=== PATIENT | female | born 1945 | race Caucasian/White ===

== ENCOUNTER 2016-12-19 07:43 | Emergency (ER) | payer BC ==
[2016-12-19 08:01] VITALS: BP 134/82
--- NOTE | 2016-12-19 08:02 | UC ---
General HPI - HPI Summary HPI Summary: 71 yo female with no reported past medical history (no pcp) presents with on and off illness for 3-4 weeks. Symptoms initially started with cough and nasal congestion which improved for several days then she developed sinus pain, MART, possible intermittent fever (not documented) for the last 2 weeks. Reports fatigue, continued nasal congestion with purulent drainage, occasional cough and mild SOB. Right ear pain 1 week ago for 1 day then resolved. Denies chills or myalgias. Denies CP or SOB. No N/V/D or abdominal pain. Denies dysuria and increased urinary frequency. Has not missed any work. - History of Current Complaint Chief Complaint: UCRespiratory Stated Complaint: SINUS,EAR PAIN Time Seen by Provider: 12/19/16 08:01 Hx Obtained From: Patient Onset/Duration: Gradual Onset Timing: Intermittent Episodes Lasting: - 3-4 weeks Onset Severity: Moderate Current Severity: Moderate Associated Signs & Symptoms: Positive: Cough, Headache. Negative: Abdominal Pain, Chest Pain, Dizziness, Diarrhea, Dysuria, Decreased Oral Intake, Nausea, SOB, Wheezing - Allergy/Home Medications Allergies/Adverse Reactions: Allergies Allergy/AdvReac Type Severity Reaction Status Date / Time Penicillins Allergy Severe Rash Verified 12/19/16 07:54 PMH/Surg Hx/FS Hx/Imm Hx Previously Healthy: Yes - no pcp - denies PMH Endocrine History Of: Denies: Diabetes, Thyroid Disease Cardiovascular History Of: Denies: Cardiac Disorders, Hypertension Respiratory History Of: Denies: COPD, Asthma, Bronchitis - Surgical History Surgical History: Yes Surgery Procedure, Year, and Place: , 2000, [place] - Family History Known Family History: Positive: None - Social History Occupation: Employed Full-time - [employer] Lives: Alone Alcohol Use: None Substance Use Type: None Smoking Status (MU): Never Smoked Tobacco Have You Smoked in the Last Year: No - Immunization History Most Recent Influenza Vaccination: Not the 2016/2016 Season Hx Tetanus, Diphtheria Vaccination: Yes Vaccination Up to Date: Yes Review of Systems Constitutional: Fever, Fatigue Skin: Negative Eyes: Negative ENT: Negative, Nasal Discharge Respiratory: Cough Cardiovascular: Negative Gastrointestinal: Negative Genitourinary: Negative Motor: Negative Neurovascular: Negative Musculoskeletal: Negative Neurological: Headache Psychological: Negative All Other Systems Reviewed And Are Negative: Yes Physical Exam Triage Information Reviewed: Yes Appearance: Well-Appearing, No Pain Distress, Well-Nourished Vital Signs: Initial Vital Signs Temp 98.2 F 12/19/16 07:51 Pulse 66 12/19/16 07:51 Resp 16 12/19/16 07:51 BP 134/82 12/19/16 07:51 Pulse Ox 100 12/19/16 07:51 Vital Signs Reviewed: Yes Eye Exam: Normal ENT Exam: Normal ENT: Positive: Normal ENT inspection, Pharynx normal, TMs normal Neck: Positive: Supple, Nontender, No Lymphadenopathy Respiratory: Positive: Chest non-tender, No respiratory distress, No accessory muscle use, Crackles - right lower base. Negative: Respiratory distress, Rhonchi, Stridor, Wheezing Cardiovascular: Positive: RRR, No Murmur, Pulses Normal, Brisk Capillary Refill Abdomen Description: Positive: Nontender, Soft. Negative: CVA Tenderness (R), CVA Tenderness (L), Distended, Guarding Bowel Sounds: Positive: Present Musculoskeletal: Positive: Strength Intact, ROM Intact, No Edema Neurological: Positive: Alert Psychological Exam: Normal Skin Exam: Normal Course/Dx - Differential Dx - Multi-Symptom Differential Diagnoses: Other - viral syndrome Provider Diagnoses: 1. Acute Sinusitis. 2. Possible COPD Discharge - Discharge Plan Condition: Stable Disposition: HOME Prescriptions: Albuterol HFA INHALER* [Ventolin HFA Inhaler*] 1 puff INH Q4H PRN #1 mdi PRN Reason: Sob/Wheezing DOXYcycline CAP(*) [DOXYcycline 100MG CAP(*)] 100 mg PO BID #14 cap Spacer/Holding Chamber (NF) [Easivent CHAMBER (NF)] 1 aer INH Q4HR #1 device Patient Education Materials: Sinusitis (ED), COPD (Chronic Obstructive Pulmonary Disease) (ED) Referrals: Noy Keen MD [Medical Doctor] - No Primary Care Phys,NOPCP [Primary Care Provider] - Additional Instructions: It is very important you establish with a primary care provider. Please call the Physician [facility]. Your chest xray has concern for chronic obstructive lung disease. You should be evaluated by a primary care provider as well as a occupational health and safety manager (lung doctor). Please call Dr. Keen's (occupational health and safety manager) office for an consult. As discussed it is important that you have pulmonary functional testing and be on the right medications.
--- NOTE | 2016-12-19 08:41 | RAD ---
INDICATION: 2 weeks cough and shortness of breath. COMPARISON: January 06, 2013 chest radiograph. TECHNIQUE: Dual energy PA and routine lateral views of the chest were obtained. REPORT: Elevated lung volumes with increased AP thoracic diameter moderate coarsening foci of upper lung zone rarefaction of the interstitial markings without gross 2013 exam no alveolar consolidation, focal pulmonary lesion, pleural effusion, or thorax. The heart, pulmonary vasculature, and mediastinal contours are unremarkable. IMPRESSION: Stigmata of probable chronic obstructive pulmonary disease other etiologies of mild interstitial fibrosis are not excluded. No evidence for superimposed pneumonia.
== END 2016-12-19 09:27 | disposition home or self-care (01) ==
LOC: UCCORT 07:43
DX: J01.90 Acute sinusitis, unspecified (principal); Z88.0 Allergy status to penicillin; Z90.49 Acquired absence of other specified parts of digestive tract
CPT/HCPCS: 71020; 99202; G0463